=== PATIENT | male | born 1955 | race African-American/Black ===

== ENCOUNTER 2020-10-31 18:12 | Outpatient (CLI) | payer MEDICARE, BC, SELFPAY ==
--- NOTE | ~2020-10-31 | XR_ITS ---
XR chest 2V DATE: 10/31/2020 18:36 INDICATION: Persistent cough for one month TECHNIQUE: PA and lateral views COMPARISON: 09/23/2009 portable AP chest FINDINGS: Status post left thoracotomy and partial resection of the left lung. No pulmonary infiltrate or consolidation, pleural effusion or pulmonary vascular congestion or pneumo thorax is detected. Heart size is within normal range. No hilar or mediastinal enlargement. There is widening of the left acromioclavicular joint. IMPRESSION: Status post left thoracotomy/partial pneumonectomy No active cardiopulmonary disease Reviewed, dictated and finalized at location A. ENT RELATIONS SPECIALIST
== END 2020-10-31 18:13 | disposition home or self-care (01) ==
PROVIDERS: PCP Internal Medicine; Visit Provider Internal Medicine
DX: R05 Cough (principal)
CPT/HCPCS: 71046

== ENCOUNTER 2021-03-14 07:52 | Outpatient (CLI) | payer MEDICARE, BC, SELFPAY ==
--- NOTE | ~2021-03-14 | US_ITS ---
EXAMINATION: US aorta DATE: 03/14/2021 08:08 CDT INDICATION: Screening for abdominal aortic aneurysm TECHNIQUE: Grayscale, color Doppler, and pulsed Doppler images of the aorta and common iliac arteries were obtained. COMPARISON: None. FINDINGS: The proximal aorta measures 2.7 cm greatest sagittal dimension. The mid aorta measures 2 cm greatest sagittal dimension. The distal aorta measures 1.7 cm greatest sagittal dimension. The right common in ternal iliac artery measures 9 mm. The left common iliac artery measures 9 mm. There is fatty infiltr ation of the liver. IMPRESSION: 1. Normal caliber aorta without aneurysm. Reviewed, dictated and finalized at location D.
== END 2021-03-14 07:53 ==
PROVIDERS: Visit Provider Internal Medicine
DX: Z12.2 Encounter for screening for malignant neoplasm of respiratory organs (principal); Z87.891 Personal history of nicotine dependence
CPT/HCPCS: 76775

== ENCOUNTER 2025-01-15 00:43 | Day surgery (SDC) | payer MEDICARE, BC, SELFPAY ==
[2024-09-25 09:34] VITALS: BMI 29.4
[2025-01-06 11:55] VITALS: BMI 29.5
--- OUTSIDE RECORDS SUMMARY | 2025-01-15 00:47 | XMS_ITS | Encounter Summary ---
Author Organization [facility] Healthcare Address [address] [place] [address] Care Team Providers Care Grocery Carrier Name Role Phone Lucila Vaughn MD Primary Care Provider +1- [phone] Encounter Details Date Type Department Care Team (Late st Contact Info) Description 01/02/2025 Results Follow-Up [facility] Medical Group Convenient Care at [address] [address] Zully Herrera PA [address] [place] [address] [address] [place], [place] [id number] Social History Tobacco Use Types Packs/Day Years Used Date Smoking Tobacco: Never Assessed Sex and Gender Information Value Date Recorded Sex Assigned at Not on file 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
--- OUTSIDE RECORDS SUMMARY | 2025-01-15 00:47 | XMS_ITS | Clinical Summary ---
Author Organization [facility] Address [address] [place] [address] Care Team Providers Care Lawn Mower Operator Name Role Phone Lucila Vaughn MD Primary Care Provider +1- [phone] Allergies No known active allergies Medications losartan-hydroc hlorothiazide (HYZAAR) 100-25 mg per tablet take 0.5 Tablet by oral route every day 0 0 5 Active amLODIPine (NORVASC) 10 mg tablet take 1 tablet by oral route every day 0 0 5 Active FLUoxetine (PROzac) 10 mg capsule Take 1 tablet/capsule (10 mg total) by mouth daily Active olmesartan-hydr ochlorothiazide (BENICAR HCT) 40-12.5 mg per tablet Take 1 tablet by mouth daily 5 Active zolpidem CR (AMBIEN CR) 6.25 mg CR tablet Take 1 tablet (6.25 mg total) by mouth nightly as needed for sleep 5 Active benzonatate (TESSALON) 200 mg capsuleIndicati ons:Viral upper respiratory tract infection with cough Take 1 capsule (200 mg total) by mouth 3 (three) times a day as needed for cough keep tessalon out of reach of children, especially children under the age of 10, due to possible serious risk such as if ingested by children under the age of 10. 30 capsule 5 Active predniSONE (DELTASONE) 10 mg tablet take 2 tablets daily for 30 days, then 1 tablet daily for 30 days, then 1/2 tablet daily for 30 days 105 0 6 01/02/20 25 Discontin ued(Thera py completed ) acetaminophen-c odeine (TYLENOL-CODEIN E #3) 300-30 mg per tablet take 1 to 2 tablets by oral route every 6 hours as needed 60 0 7 01/02/20 25 Discontin ued(Thera py completed ) amoxicillin (amoxicillin) 500 mg tablet/capsule Take 2 gm (4 tablets) 1 hour prior to dental procedure 4 2 7 01/02/20 25 Discontin ued(Thera py completed ) olmesartan-amLO DIPin-hcthiazid 20-5-12.5 mg tablet Take by mouth 01/02/20 25 Discontin ued(Thera py completed ) Active Problems Problem Noted Date Diagnosed Date Polyp of colon 06/18/2019 Overview (06/18/2019): Added automatically from request for surgery [id number] Pain in pelvis 09/26/2016 Overview (01/11/2017): Pelvic pain Arthralgia of hip 09/17/2016 Overview (01/11/2017): Hip pain Former smoker 02/09/2015 Overview (01/11/2017): Ex smoker Shoulder pain 11/30/2014 Overview (01/11/2017): Shoulder pain Pain of lower extremity 11/30/2014 Overview (01/11/2017): Leg pain Arthritis 11/30/2014 Overview (01/11/2017): Arthritis Back pain 11/30/2014 Overview (01/11/2017): Back pain Palpitations 11/30/2014 Overview (01/11/2017): Heart palpitations Chest pain 11/30/2014 Overview (01/11/2017): Chest pain Hypertension 11/30/2014 Overview (01/11/2017): Hypertension Encounters Date Type Department Care Team Description 01/02/2025 Results Follow-Up [facility] Medical [facility] Convenient Care at [address] [phone] Zully Herrera PA 01/01/2025 2:25 PM CDT - 01/01/2025 11:59 PM CDT Hospital Encounter [address] [address] Viral upper respiratory tract infection with cough Discharge Disposition: Discharge to home or self care 01/01/2025 2:15 PM CDT Office Visit [facility] at [address] [phone] Karlee White NP Viral upper respiratory tract infection with cough (Primary Dx); Exposure to strep throat from Last 3 Months Surgical History Surgery Date Site/Laterality Comments COLONOSCOPY 06/07/2014 - 07/06/2014 Medical History Medical History Date Comments Hx Other Medical Rotator cuff martinez rg. October 2009; Comments: [facility] 11/30/2014 - Hx Other Medical Cancer surgery December 2006.; Comments: [facility] 11/30/2014 - Hx Other Medical Left AC resecti on with anterior acromioplasty 01-11-; Comments: [facility] 01/24/2015 - Hx Other Medical 12-27-16 Left to [facility] hip replacement.; Comments: [facility] 01/08/2017 - Family History Medical History Relation Name Comments Other Father at age 52 from an accident.; Hypertension Mother Hypertension; Other Mother at age 82 from natural causes.; Other Other Family history of hypertension, cancer, sickle cell anemia and arthritis.; Relation Name Status Comments Father Mother Other Social History Tobacco Use Types Packs/Day Years Used Date Smoking Tobacco: Never Assessed Sex and Gender Information Value Date Recorded Sex Assigned at Not on file 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 Gender Identity Not on file Sexual Orientation Not on file Obstetrics History Last Filed Vital Signs Vital Sign Reading Time Taken Comments Blood Pressure 140/88 01/01/2025 2:10 PM CDT Pulse 87 01/01/2025 2:10 PM CDT Temperature 37 C (98.6 F) 01/01/2025 2:10 PM CDT Respiratory Rate 20 01/01/2025 2:10 PM CDT Oxygen Saturation 99% 01/01/2025 2:10 PM CDT Inhaled Oxygen Concentration - - Weight 95.3 kg (210 lb) 07/21/2019 11:13 AM CDT Height 180.3 cm (5' 11 ) 07/21/2019 11:13 AM CDT Body Mass Index 29.29 07/21/2019 11:13 AM CDT Plan of Treatment Health Maintenance Due Date Last Done Comments Depression Screening 1955 Fall Risk Assessment 1955 Hepatitis C Screening 1955 Prostate Cancer Screening-PSA 1955 Hepatitis B Screening 1971 Abdominal Aortic Aneurysm (A AA) Screen 2018 Well Visit 65+ 2018 Covid-19 Vaccine (2023-11 5 season) 2024 07/02/2024, 04/02/2024, 06/06/2023, Additional history exists Colon Cancer Screening-Colonoscopy 07/21/2029 07/21/2019 DTaP/Tdap/Td Vaccine (2 - Td or Tdap) 11/02/2030 11/02/2020 Colon Cancer Screening-CT Colonography Discontinued 07/21/2019 Colon Cancer Screening-DNA Stool Discontinued 07/21/20 Colon Cancer Screening-FIT Discontinued 07/21/2019 Colon Cancer Screening-Sigmoidoscopy Discontinued 07/21/2019 Zoster Vaccine Completed 06/25/2020, 12/18/2019 Pneumococcal vaccine 65+ Completed 023, 03/04/2021, 02/13/2019 Influenza Vaccine Completed 07/02/2024, , 06/14/2022, Additional history exists Procedures Procedure Name Priority Date/Time Associated Diagnosis Comments POCT RAPID STREP Routine 01/01/2025 2:25 PM CDT Viral upper respiratory tract infection with cough INFLUENZA A/B, RSV, AND COVID-19 PCR Routine 01/01/2025 2:25 PM CDT Viral upper respiratory tract infection with cough THROAT CULTURE Routine 01/01/2025 2:25 PM CDT Viral upper respiratory tract infection with cough COLONOSCOPY 07/21/2019 11:18 AM CDT from Last 3 Months or Most Recently Relevant to Health Maintenance Results * Influenza A/B, RSV, and COVID-19 PCR Nasopharyngeal (01/01/2025 2:25 PM CDT) [facility] COVID-19 RNA Negative Negative Influenza A RNA Negative Negative [facility] Influenza B RNA Negative Negative [facility] RSV RNA Negative Negative [facility] Comment: Interpretive data: Testing performed by [facility]. This test is performed using the [employer] Xpert Xpress CoV-2/Flu/RSV plus assay. This is a multiplex, real-time reverse transcriptase PCR assay intended for the qualitative detection of nucleic acid from SARS-CoV-2, influenza A, influenza B, and respiratory syncytial virus. This assay has been cleared by the [place] Food and Drug administration. The performance characteristics have been verified by the [facility]. Results must be considered in the clinical context, and a negative result does not rule out infection. Interpretive Data last revised 2023 Nasopharyngeal 01/01/2025 2: 25 PM CDT 01/01/2025 9:41 PM CDT Narrative [facility] - 01/01/2025 10:28 PM CDT Is the Patient experiencing symptoms consistent with COVID?->Yes Reason for testing?->Symptomatic Known exposure to confirmed or suspected COVID-19 case?->No us Karlee White NP LAB MICROBIOLOGY - [facility] Final Result Performing Organization Address City/State/[facility] Co de Phone Number [facility] [address] Department [place] [address] * POCT rapid strep A (01/01/2025 2:25 PM CDT) [facility] Rapid Strep A, POC Negative Negative Swab 01/01/2025 2:25 PM CDT us Karlee White NP POINT OF CARE TEST ORDERABLES F inal Result * Throat culture Throat (01/01/2025 2:25 PM CDT) Report Final Report: No growth of pathogens. Comment:Testing performed by : [facility], [address], [place]., [address] Throat 01/01/2025 2:25 PM CDT 01/01/2025 11:58 PM CDT Scottie [facility] - 01/02/2025 6:52 PM CDT Testing performed by [facility] ([phone]). us Karlee White NP LAB MICROBIOLOGY - GENERAL ORDE TY Final Result [facility] [id number] [address] Department [place] [address] * COLONOSCOPY (07/21/2019 11:18 AM CDT) Anatomical Region Laterality Modality Other Narrative Procedure Note Wei Banuelos MD - 07/21/2019 11:18 AM CDT [facility] Patient Name: Yefri Darden Procedure Date: 07/21/2019 11:18AM Date of : 1955 Admit Type: Outpatient Age: 64 Gender: Male Attending MD: Wei Banuelos M.D. Room: [facility] ENDOSCOPY ROOM 1 Note Status: Finalized Patient Profile: This is a 64 year old male. h/o polyps. No familyh/o colon cancer. Procedure: Colonoscopy Indications: High risk colon cancer surveillance: Personalhistory of colonic polyps, Last colonoscopy: June2014 Referring MD: Zaheer Kitchen MD Providers: Wei Banuelos M.D. Impression: - One 4 mm polyp in the ascending colon, removedwith a jumbo cold forceps. Resected and retrieved. - Diverticulosis in the sigmoid colon and in the ascending colon. - Internal hemorrhoids. Recommendation: - Await pathology results. - Continue present medications. - Repeat colonoscopy in 5 years for screeningpurposes. Medicines: Monitored Anesthesia Care Complications: No immediate complications. Estimated Blood Loss: Estimated blood loss: none. Procedure: Pre-Anesthesia Assessment: - Prior to the procedure, a History and Physical was performed, and patient medications and allergieswere reviewed. The patient's tolerance of previous anesthesia was also reviewed. The risks and benefitsof the procedure and the sedation options and riskswere discussed with the patient. All questions were answered, and informed consent was obtained. Prior Anticoagulants: The patient has taken no previous anticoagulant or antiplatelet agents. ASA Grade Assessment: II - A patient with mild systemicdisease. After reviewing the risks and benefits, the patientwas deemed in satisfactory condition to undergo the procedure. The benefits, risks and alternatives of theprocedure and sedation were discussed and informed consent was obtained. All questions were answered. Please referto the signed informed consent document in the medical record. Bowel prep was administered using a splitdose. The bowel preparation used was Miralax. The bowel preparation used was bisacodyl tablets. The scopewas passed under direct vision. The [id number] was introduced through the anus andadvanced to the the cecum, identified by appendiceal orificeand ileocecal valve. The quality of the bowelpreparation was good. Findings: The perianal and digital rectal examinations were normal. The cecum appeared normal. A 4 mm polyp was found in the ascending colon. The polyp was semi-sessile. The polyp was removed with a jumbo cold forceps.Resection and retrieval were complete. Multiple small and large-mouthed diverticula were found in thesigmoid colon and ascending colon. Internal hemorrhoids were found during retroflexion. The hemorrhoids were medium-sized. Electronically signed by Wei Banuelos M.D. Wei Banuelos M.D. 07/21/2019 12:29:40 PM Number of Addenda: 0 Note Initiated On: 07/21/2019 11:18 AM Procedure Code(s): --- Professional --- 36624, Colonoscopy, flexible; with biopsy, single or multiple Diagnosis Code(s): --- Professional --- Z86.010, Personal history of colonic polyps K64.8, Other hemorrhoids D12.2, Benign neoplasm of ascending colon K57.30, Diverticulosis of large intestine without perforation orabscess without bleeding CPT copyright 2017 [employer]. All rights reserved. The codes documented in this report are preliminary and upon sheep herder reviewmay be revised to meet current compliance requirements. Recognized by the [place] [employer] for promoting quality in endoscopy Wei Banuelos MD ENDOSCOPY PROCEDURES Final Result from Last 3 Months or Most Recently Relevant to Health Maintenance Insurance [place] CHO[place] ANTH ACCESS [place] CHO[place] Advance Directives For more information, please contact: [phone] * Full Code (Latest Code Status on File) Date Activated Date Inactivated Comments 07/21/2019 11:13 AM 07/21/2019 5:11 PM * Full Code Date Activated Date Inactivated Comments 07/21/2019 11:12 AM 07/21/2019 11:13 AM Care Teams Lawn Mower Operator Relationship Specialty Start Date End Date Lucila Vaughn MD [address] [place] [address] PCP - General Internal Medicine 01/01/25
--- OUTSIDE RECORDS SUMMARY | 2025-01-15 00:47 | XMS_ITS | Referral Summary ---
Author Organization [facility] Address [address] [place] [address] Care Team Providers Care Coffee Shop Aide Name Role Phone Lucila Vaughn MD Primary Care Provider +1- [phone] Encounters Date Type Department Care Team Description 01/02/2025 Results Follow-Up [facility] Medical Group Convenient Care at [address] [address] Zully Herrera PA 01/01/2025 2:25 PM CDT - 01/01/2025 11:59 PM [place] [address] Viral upper respiratory tract infection with cough Discharge Disposition: Discharge to home or self care 01/01/2025 2:15 PM CDT Office Visit [facility] Medical Group Convenient Care at [address] [address] Karlee White NP Viral upper respiratory tract infection with cough (Primary Dx); Exposure to strep throat from Last 3 Months Allergies No known active allergies Medications losartan-hydroc [...] (06/18/2019): Added automatically from request for surgery [id number] Pain in pelvis 09/26/2016 Overview (01/11/2017): Pelvic [...] Chest pain Hypertension 11/30/2014 Overview (01/11/2017): Hypertension Social History Tobacco Use Types Packs/Day Years Used Date Smoking Tobacco: Never Assessed Sex and Gender Information Value Date Recorded Sex Assigned at Not on file 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 Gender Identity Not on file Sexual Orientation Not on file Last Filed Vital Signs Vital Sign Reading [...] 07/21/2019 11:13 AM CDT Plan of Treatment Not on file Procedures Procedure Name Priority Date/Time Associated Diagnosis [...] COVID-19 PCR Nasopharyngeal (01/01/2025 2:25 PM CDT) [facility] COVID-19 RNA Negative Negative Influenza A RNA Negative Negative [facility] Influenza B RNA Negative Negative [facility] RSV RNA Negative Negative [facility] Comment: Interpretive data: Testing performed by [facility]. This test is performed using the [employer] Xpert Xpress CoV-2/Flu/RSV plus assay. This is a multiplex, real-time reverse transcriptase PCR assay intended for the qualitative detection of nucleic acid from SARS-CoV-2, influenza A, influenza B, and respiratory syncytial virus. This assay has been cleared by the [place] Food and Drug administration. The performance characteristics have been verified by the [facility]. Results must be considered in the clinical context, and a negative result does not rule out infection. Interpretive Data last revised 2023 Nasopharyngeal 01/01/2025 2: 25 PM CDT 01/01/2025 9:41 PM CDT Narrative [facility] - 01/01/2025 10:28 PM CDT Is the Patient experiencing symptoms consistent with COVID?->Yes Reason for testing?->Symptomatic Known exposure to confirmed or suspected COVID-19 case?->No us Karlee White NP LAB MICROBIOLOGY - GENERAL ORDE TY Final Result [facility] [address] [address] Department [place] [address] * POCT rapid strep A (01/01/2025 2:25 PM CDT) [facility] Rapid Strep A, POC Negative Negative Swab 01/01/2025 2:25 PM CDT us Karlee White NP POINT OF CARE TEST ORDERABLES F inal Result * Throat culture Throat (01/01/2025 2:25 PM CDT) Report Final Report: No growth of pathogens. Comment:Testing performed by : [facility], [address] [place]., [address] Throat 01/01/2025 2:25 PM CDT 01/01/2025 11:58 PM CDT Narrative [facility] - 01/02/2025 6:52 PM CDT Testing performed by [facility]biology Laboratory ([phone]). Karlee White NP LAB MICROBIOLOGY - GENERAL ORDE [facility] Final Result [facility] [id number] [facility] Department [place] [address] * COLONOSCOPY (07/21/2019 11:18 AM CDT) Anatomical Region Laterality Modality Other Narrative Procedure Note Wei Banuelos MD - 07/21/2019 11:18 AM CDT [facility] Patient Name: Yefri Darden Procedure Date: 07/21/2019 11:18AM Date of : 1955 Admit Type: Outpatient Age: 64 Gender: Male Attending MD: Wei Banuelos M.D. Room: [facility] ENDOSCOPY ROOM 1 Note Status: Finalized Patient [...] The scopewas passed under direct vision. The [id number] was introduced through the anus andadvanced to [...] 11:18 AM Procedure Code(s): --- Professional --- 41367, Colonoscopy, flexible; with biopsy, single or multiple Diagnosis Code(s): --- Professional --- Z86.010, Personal history of colonic polyps K64.8, Other hemorrhoids D12.2, Benign neoplasm of ascending colon K57.30, Diverticulosis of large intestine without perforation orabscess without bleeding CPT copyright 2017 [employer]. All rights reserved. The codes documented in this report are preliminary and upon test designer reviewmay be revised to meet current compliance requirements. Recognized by the [place] [employer] for promoting quality in endoscopy Wei Banuelos MD ENDOSCOPY PROCEDURES Final Result from Last 3 Months or Most Recently Relevant to Health Maintenance Insurance [place] CHO[place] PR[place] [facility] MEDICARE CHOICE PRF PPO [place] MEDICARE Advance Directives For more information, please contact: [phone] * Full Code (Latest Code Status on File) Date Activated Date Inactivated Comments 07/21/2019 11:13 AM 07/21/2019 5:11 PM * Full Code Date Activated Date Inactivated Comments 07/21/2019 11:12 AM 07/21/2019 11:13 AM Care Teams Coffee Shop Aide Relationship Specialty Start Date End Date Lucila Vaughn MD [address] [place] [address] PCP - General Internal Medicine 01/01/25
[2025-01-15 06:46] VITALS: BP 117/68; PULSE 81; RESP 18; TEMP 36.1; O2SAT 97
[2025-01-15] MEDS: LACTATED RINGERS 1,000 ML 150 ML IV CONT (06:59)
--- NOTE | 2025-01-15 07:45 | P.PNAN_ITS ---
Anes - Initial Pre Proc Eval Procedure: Operation Date: 01/15/25 08:00 Proposed Procedures p Screening Colonoscopy - Brian Gómez MD Date/Time: 01/15/25 07:45 Surgeon: Brian Gómez MD Pre Op Diagnosis: colon screening Patient Data Age: 69 Gender: M Height: 1.78 m Weight: 95.3 kg Last Vital Signs Temp 97 F L 01/15/25 06:46 Pulse 81 01/15/25 06:46 Resp 18 01/15/25 06:46 BP 117/68 01/15/25 06:46 Pulse Ox 97 01/15/25 06:46 O2 Del Method Room Air 01/15/25 06:46 Allergies Allergy/AdvReac Type Severity Reaction Status Date / Time No Known Allergies Allergy Verified 01/15/25 06:44 Home Medications ?Medication ?Instructions ?Recorded ?Confirmed ?Type fluoxetine 10 mg capsule (Prozac) 10 mg PO DAILY #90 caps 09/11/19 01/15/25 Rx amlodipine 10 mg tablet 10 mg PO DAILY 10/12/19 01/15/25 History olmesartan 40 1 tablet PO DAILY 10/12/19 01/15/25 History mg-hydrochlorothiazide 12.5 mg tablet ciclopirox 1 % shampoo 5 ml topical 2XW 4 weeks #120 mL 02/27/21 01/15/25 Rx cyproheptadine 4 mg tablet 4 mg PO DAILY 09/25/24 01/15/25 History zolpidem 6.25 mg tablet,extended 6.25 mg PO HS PRN sleep 09/25/24 09/25/24 History release,multiphase Patient hx anesthesia problems: none Family hx anesthesia problems: none Results Review: All pre-operative results and documents have been reviewed as part of the pre- operative evaluation. PMFSH Family History Family History Mother Hypertension Other Family history of kidney disease Family history of sickle cell trait Social History Social History Smoking status: Never smoker Tobacco type: cigarettes Alcohol intake: current Drinks per week: 7 Alcohol use details: wine Living arrangements: with family Spiritual care concerns: No Anes - Eval Final PreProcedure Day of Procedure 01/15/25 07:45 Patient weight: normal Heart: regular rate and rhythm Lungs: clear to auscultation Airway: Mallampati scale class II Neurological: alert and oriented Last oral intake: >/= 8 hours Emergent: no Anesthetic plan: proceed Anesthesia type and monitoring: general GIVS and standard monitoring Results Review: All pre-operative results and documents have been reviewed as part of the pre- operative evaluation. Informed Consent: The patient's anesthetic plan and its attendant risks and benefits were discussed with the patient/family/POA. Questions were solicited and answers provided to the satisfaction of the patient/family/POA.
--- NOTE | 2025-01-15 07:58 | P.HP_ITS ---
History of Present Illness History of Present Illness Consent: Risks, benefits, and alternatives have been discussed and questions answered. Patient agrees to proceed with procedure. Chief complaint: colon screening Narrative: Yefri Darden is a 69 year old male with polyp 5 years ago Review of Systems Review of Systems: All systems reviewed & are unremarkable except as noted in HPI and below PMFSH Family History Family History Mother Hypertension Other Family history of kidney disease Family history of sickle cell trait Social History Social History Smoking status: Never smoker Tobacco type: cigarettes Alcohol intake: current Drinks per week: 7 Alcohol use details: wine Living arrangements: with family Spiritual care concerns: No Meds Home Medications and Allergies Home Medications ?Medication ?Instructions ?Recorded ?Confirmed ?Type fluoxetine 10 mg capsule (Prozac) 10 mg PO DAILY #90 caps 09/11/19 01/15/25 Rx amlodipine 10 mg tablet 10 mg PO DAILY 10/12/19 01/15/25 History olmesartan 40 1 tablet PO DAILY 10/12/19 01/15/25 History mg-hydrochlorothiazide 12.5 mg tablet ciclopirox 1 % shampoo 5 ml topical 2XW 4 weeks #120 mL 02/27/21 01/15/25 Rx cyproheptadine 4 mg tablet 4 mg PO DAILY 09/25/24 01/15/25 History zolpidem 6.25 mg tablet,extended 6.25 mg PO HS PRN sleep 09/25/24 09/25/24 History release,multiphase Allergies Allergy/AdvReac Type Severity Reaction Status Date / Time No Known Allergies Allergy Verified 01/15/25 06:44 Vital Signs Vital Signs - 24 hr 01/15/25 06:46 Temperature 97 F L Pulse Rate 81 Respiratory Rate 18 Blood Pressure 117/68 Pulse Oximetry 97 Oxygen Delivery Room Air Exam Const: General: comfortable and no acute distress HENMT: Face/Nose/Sinus: Normal nares present Eyes: General: appearance normal, both eyes and all related structures Neck: Neck: no JVD Resp: Auscultation: clear to auscultation bilaterally Cardio: Rate: regular rate Rhythm: regular rhythm GI: Inspection: non-distended GI Palp: Yes Soft to palpation Skin: General skin exam: normal color Neuro: Speech: normal speech Extrem: General: normal to inspection Psych: Mental Status: mental status grossly normal Assessment and Plan Assessment and plan (1) History of colon polyps: Code(s): Z86.010 - Personal history of colon polyps Status: Acute Assessment and Plan: colonoscopy
[2025-01-15 08:15] VITALS: BP 132/71; PULSE 78; RESP 16; O2SAT 96
[2025-01-15 08:25] VITALS: BP 109/67; PULSE 64; RESP 17; O2SAT 95
[2025-01-15 08:35] VITALS: BP 128/79; PULSE 66; RESP 17; O2SAT 100
== END 2025-01-15 08:42 | disposition home or self-care (01) ==
PROVIDERS: PCP Internal Medicine; Referring Provider Nurse Practitioner Family; Visit Provider Internal Medicine Gastroenterology
PROC: 0DJD8ZZ Inspection of Lower Intestinal Tract, Via Natural or Artificial Opening Endoscopic (ICD-10-PCS; CPT 45378; principal; 2025-01-15 08:00)
DX: Z12.11 Encounter for screening for malignant neoplasm of colon (principal); K64.8 Other hemorrhoids; K57.30 Diverticulosis of large intestine without perforation or abscess without bleeding; Z86.0100 Personal history of colon polyps, unspecified
CPT/HCPCS: G0105; J2704; J7120